=== PATIENT | male | born 1980 | race Caucasian/White ===

== ENCOUNTER 2017-03-08 14:50 | Emergency (ER) | payer OTHER ==
[2017-03-08 14:53] VITALS: BP 117/69; PULSE 84; TEMP 98.8; BMI 22.7
--- NOTE | 2017-03-08 15:19 | PDOC ---
History of Present Illness - General Chief Complaint: Injury Stated Complaint: INJURY TO FINGER Time Seen by Provider: 03/08/17 15:08 History Source: Patient Exam Limitations: No Limitations - History of Present Illness Initial Comments: 03/08/17 15:12 Patient states sustained an abrasion/injury while on job 2 days ago left third digit middle phalanx. 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 Noticed the streaking this afternoon and came for evaluation. Denies fever, denies inability to flex finger but states is sore. Patient has Crohn disease and is taking immunosuppressant 03/08/17 16:10 Occurred: reports: yesterday Severity: reports: mild, moderate Pain Location: reports: upper extremity (left 3rd digit ) Associated Symptoms (Fall): denies symptoms Past History - Travel Traveled outside of the country in the last 30 days: No Close contact w/someone who was outside of country & ill: No - Past Medical History Allergies/Adverse Reactions: Allergies Allergy/AdvReac Type Severity Reaction Status Date / Time ibuprofen Allergy Verified 03/08/17 14:53 Home Medications: Ambulatory Orders Mercaptopurine [Purinethol -] 50 mg PO DAILY 10/09/15 Balsalazide Disodium [Colazal (Nf) -] 3,000 mg PO TID #0 10/10/15 Cephalexin Monohydrate [Keflex -] 500 mg PO Q8H #21 capsule 03/08/17 Sulfamethoxazole/Trimethoprim [Bactrim *Ds*] 1 each PO BID #14 tablet 03/08/17 Vancomycin 1 Gram (Pre-Docked) [Vancomycin (Pre-Docked)] 1,000 mg IVPB ONCE #1 bag 03/08/17 Anemia: No Asthma: No Cancer: No Cardiac Disorders: No CVA: No COPD: No CHF: No Dementia: No Diabetes: No GI Disorders: Yes (CROHN'S) Disorders: No HTN: No Hypercholesterolemia: No Liver Disease: No Seizures: No Thyroid Disease: No - Surgical History Orthopedic Surgery: Yes ([facility]) - Suicide/Smoking/Psychosocial Hx Smoking History: Never smoked Information on smoking cessation initiated: No Hx Alcohol Use: No Drug/Substance Use Hx: No Substance Use Type: None Hx Substance Use Treatment: No Trauma Specific PMHX - Complaint Specific PMHX Back Injury: No Neck Injury: No Review of Systems - Review of Systems Able to Perform ROS?: Yes Is the patient limited [place] proficient: Yes Constitutional: Yes: See HPI. No: Symptoms Reported, Chills, Fever HEENTM: No: Symptoms Reported Musculoskeletal: Yes: Symptoms Reported, See HPI, Joint Swelling, Joint Stiffness Integumentary: Yes: Symptoms Reported, See HPI, Change in Color, Erythema ( right third digit with ulceration to proximal phalanx) All Other Systems: Reviewed and Negative *Physical Exam - Vital Signs Last Vital Signs Temp Pulse Resp BP Pulse Ox 98.8 F 84 18 117/69 99 03/08/17 14:51 03/08/17 14:51 03/08/17 14:51 03/08/17 14:51 03/08/17 14:51 - Physical Exam General Appearance: Yes: Nourished, Appropriately Dressed, Apparent Distress, Mild Distress HEENT: positive: EOMI, DEBORAH, Normal ENT Inspection, TMs Normal, Pharynx Normal Neck: positive: Tender, Supple Respiratory/Chest: positive: Lungs Clear Cardiovascular: negative: Regular Rhythm Gastrointestinal/Abdominal: positive: Normal Bowel Sounds, Soft Musculoskeletal: positive: Normal Inspection Extremity: positive: Normal Capillary Refill, Normal Range of Motion, Other ( with some streaking up dorsum of hand/to mid forearm- marked has full range of motion to finger, but is tense and painful due to swelling and cellulitis. States sensation is intact distal digit). negative: Normal Inspection Integumentary: positive: Warm, Swelling Neurologic: positive: cane loader II-XII NML intact, Fully Oriented, Alert, Normal Mood/ Affect, Normal Response, Motor Strength 10/04 ED Treatment Course - LABORATORY CBC & Chemistry Diagram: 03/08/17 16:00 03/08/17 16:00 Progress Note - Progress Note Progress Note: Right third digit cellulitis. We'll provide first dose of vancomycin here to cover for MRSA, check preliminary labs and if no evidence of significant elevation of her aberration of labs. Patient resting soaking finger presently, refuses need for pain medication Medical Decision Making - Medical Decision Making 03/08/17 18:22 Symptoms much improved after receiving most of vancomycin injection, laboratory work within normal limits including white count not elevated. We will discharge her with Bactrim and Keflex prescriptions, understands wound care with soaking and may follow-up here in one to 2 days and understands wound culture will be returned probably by Friday. 03/08/17 18:24 03/08/17 19:09 03/08/17 19:10 *DC/Admit/Observation/Transfer Diagnosis at time of Disposition: Cellulitis of finger of left hand - Discharge Dispostion Disposition: HOME Condition at time of disposition: Stable Admit: No - Prescriptions Prescriptions: Sulfamethoxazole/Trimethoprim [Bactrim *Ds*] 1 each PO BID #14 tablet Cephalexin Monohydrate [Keflex -] 500 mg PO Q8H #21 capsule Vancomycin 1 Gram (Pre-Docked) [Vancomycin (Pre-Docked)] 1,000 mg IVPB ONCE #1 bag - Referrals Referrals: Beatris Kitchen MD [Primary Care Provider] - - Patient Instructions Printed Discharge Instructions: DI for Cellulitis -- Adult Additional Instructions: Rest, keep area elevated. Avoid strenuous activity or exercise until wound is healed Use hot soaks to area to bring more blood to the surface and encourage drainage May change dressings as needed to keep clean - t Change his dressing twice daily until the wound is completely healed. May use Tylenol or Motrin for mild pain relief Continue all medications as prescribed= Bactrim 1 tablet every 12 hours for 7 days Keflex 1 tablet 3 times a day for 7 days Followup with private physician in 2-3 days for wound check Return to emergency Department for worsening swelling, pain, redness, fevers as needed Call Ana on Friday between hours of one and 3:30 for culture report in her number [phone] - Post Discharge Activity Forms/Work/School Notes: Back to Work
[2017-03-08] MEDS ORDERED: VANCOMYCIN 1 GRAM (PRE-DOCKED) 1,000 MG/250 ML BAG IVPB ONE (16:04)
[2017-03-08] MEDS ORDERED: VANCOMYCIN 1 GRAM (PRE-DOCKED) 250 ML IVPB ONE (16:10)
[2017-03-08] MEDS ORDERED: ACETAMINOPHEN 500 MG TABLET (FP) PO ONE (16:12)
[2017-03-08] MEDS ORDERED: DIPHTH,PERTUSS(ACELL),TET 0.5 ML DISP.SYRIN IM ONE (16:12)
[2017-03-08 16:15] LABS: BASOPHIL 0.5 % (0-2.0); EOSINOPHIL 1.1 % (0-4.5); MCH 33.2 pg (25.7-33.7); MCHC 34.3 g/dl (32.0-35.9); MEAN CELL VOLUME 97.1 fl (80-96); MEAN PLT VOLUME 8.5 fl (7.5-11.1); NEUTROPHILS 68.9 % (42.8-82.8); PLATELET COUNT 237 K/MM3 (134-434); RDW 15.3 % (11.9-15.9)
[2017-03-08] MEDS ORDERED: ACETAMINOPHEN 500 MG TABLET (FP) ONE ×2 (16:23)
[2017-03-08 16:36] LABS: ALBUMIN 4.2 g/dl (3.4-5.0); ANION GAP 7 (8-16); BILIRUBIN,TOTAL 0.5 mg/dL (0.2-1.0); CALCIUM 9.2 mg/dL (8.5-10.1); CO2 31 mmol/L (21-32); CREATININE 1.1 mg/dL (0.7-1.3); GLUCOSE,RANDOM 92 mg/dL (74-106); SGOT/AST 13 U/L (15-37); SGPT/ALT 24 U/L (12-78); TOT PROT 7.6 g/dl (6.4-8.2)
[2017-03-08 16:37] LABS: ALK PHOS 59 U/L (45-117)
== END 2017-03-08 19:12 | disposition home or self-care (01) ==
LOC: JERFT 14:50
PROC: 3E0234Z Introduction of Serum, Toxoid and Vaccine into Muscle, Percutaneous Approach (ICD-10-PCS; principal; 2017-03-08)
PROC: 3E03329 Introduction of Other Anti-infective into Peripheral Vein, Percutaneous Approach (ICD-10-PCS; 2017-03-08)
DX: L03.012 Cellulitis of left finger (principal)
CPT/HCPCS: 36415; 73140-TC-RT; 80053; 85025; 87070; 87186; 87205; 90715; 99281-25